=== PATIENT | female | born 1970 ===

== ENCOUNTER → 2019-02-18 | Outpatient (CLI) | payer MEDICARE, BC ==
--- NOTE | 2019-02-18 13:56 | KCIC ---
BRAIN W/O CONTRAST History: Migraine. History of trauma Technique: Multiplanar, multi sequential MR imaging was performed of the brain without contrast. Comparison: Head CT April 03, 2016. Findings: No acute infarct. No intracranial hemorrhage. No mass effect. No hydrocephalus. Extra-axial spaces are unremarkable. Minimal foci of T2/FLAIR hyperintensity within the hemispheric white matter, can be seen in normal individuals although can be seen with sequela of migraine headaches or chronic microvascular ischemia. Imaged orbits are unremarkable. Mild scattered paranasal sinus mucosal thickening most prominent within the sphenoid sinus and left ethmoid sinuses. Mastoid air cells are clear. Incidentally noted small incisive canal cyst partially imaged. Impression: 1. No acute intracranial abnormality. 2. Minimal nonspecific white matter changes, as described. Electronically signed by: Marcelino Stringer DO (02/18/2019 1:53 PM) [id number]
== END | disposition home or self-care (01) ==
LOC: KCIC MRI 11:30
PROVIDERS: ATTEND Psychiatry & Neurology Neurology with Special Qualifications in Child Neurology
DX: J34.89 Other specified disorders of nose and nasal sinuses (principal); R90.82 White matter disease, unspecified; G43.111 Migraine with aura, intractable, with status migrainosus; M79.7 Fibromyalgia; Z90.710 Acquired absence of both cervix and uterus; W19.XXXA Unspecified fall, initial encounter; Y93.89 Activity, other specified; Y92.89 Other specified places as the place of occurrence of the external cause; Y99.8 Other external cause status
CPT/HCPCS: 70551